=== PATIENT | male | born 1990 | race Two or more races ===

== ENCOUNTER 2018-10-30 12:44 | Emergency (ER) | payer SELFPAY ==
[~2018-10-30] VITALS: Ht 185.4 cm; Wt 81.6 kg
[2018-10-30] MEDS ORDERED: NKM (12:58)
[2018-10-30 13:03] VITALS: BP 134/89
--- NOTE | 2018-10-30 13:03 | NUR ---
Note penelope in EDM - 10/30/18 at 1327 by EUGENIO ED Nurse Note: Pt c/o Nausea/Vomiting since last night with diarrhea.
[2018-10-30] MEDS ORDERED: Bacitracin Oint UD TOPIC ONE (13:15)
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
[2018-10-30] MEDS ORDERED: Tetanus/Diptheria/Pertussis Vaccine 0.5ml Syr IM ONE (13:30)
[2018-10-30] MEDS ORDERED: BACITRACIN-P28.35 GM TP (13:44)
[2018-10-30] MEDS ORDERED: IBUPROFEN600 MG ORAL (13:44)
--- NOTE | 2018-10-30 14:19 | NUR ---
ED Nurse Note: PT A/O X4, STATED UNDERSTANDING OF D/C IN STRUCTIONS AND EDUCATION ON NEW MEDICATION. PT WAS CRUTCH TRAINED AND WAS ASSESSED BY DEMOSTRATION.
--- NOTE | 2018-10-30 14:47 | Diagnostic Imaging Report ---
Indications: Right knee pain Technique: Three views of the right knee Comparison: None Findings: No acute fractures. No dislocations. Joint spaces are preserved. No radiopaque foreign body. Normal mineralization. Impression: No acute process
== END 2018-10-30 14:10 | disposition home or self-care (01) ==
LOC: EMR 13:50
DX: S60.512A Abrasion of left hand, initial encounter (principal); S60.511A Abrasion of right hand, initial encounter; S80.211A Abrasion, right knee, initial encounter; V18.0XXA Pedal cycle driver injured in noncollision transport accident in nontraffic accident, initial encounter; Y93.55 Activity, bike riding; Y92.89 Other specified places as the place of occurrence of the external cause; Z23 Encounter for immunization
CPT/HCPCS: 90471; 90715; 99283